=== PATIENT | female | born 1960 | race Caucasian/White ===

== ENCOUNTER → 2020-06-12 | Outpatient (CLI) | payer OTHER | LOC: HEART 5 12:01 | DX: R06.02 Shortness of breath (principal); R94.2 Abnormal results of pulmonary function studies; F17.210 Nicotine dependence, cigarettes, uncomplicated | CPT/HCPCS: 94010; 94729 ==

== ENCOUNTER 2021-11-25 12:12 | Emergency (ER) | payer OTHER ==
[2021-11-25 13:18] LABS: HEMOGLOBIN 13.2 gm/dl (12.3-15.3); RED BLOOD COUNT 4.48 M/UL (4.00-5.10); WHITE BLOOD COUNT 12.9 K/UL (4.5-11.0)
[2021-11-25 13:41] LABS: BUN/CREATININE RATIO 14 (0-10)
== END 2021-11-25 15:30 | disposition home or self-care (01) ==
LOC: ER1 12:12
PROVIDERS: Physician Assistant
DX: S82.001A Unspecified fracture of right patella, initial encounter for closed fracture (principal); S52.124A Nondisplaced fracture of head of right radius, initial encounter for closed fracture; S01.512A Laceration without foreign body of oral cavity, initial encounter; E87.6 Hypokalemia; I10 Essential (primary) hypertension; F17.210 Nicotine dependence, cigarettes, uncomplicated; Z23 Encounter for immunization; W18.30XA Fall on same level, unspecified, initial encounter; Y93.01 Activity, walking, marching and hiking; Y92.511 Restaurant or cafe as the place of occurrence of the external cause
CPT/HCPCS: 70450; 73080; 73564; 80053; 82550; 82553; 84484; 85025; 90471; 90715; 93005; 99284